=== PATIENT | female | born 1990 | race American Indian/Alaskan Native ===

== ENCOUNTER 2019-02-07 13:36 | Emergency (ER) | payer OTHER ==
[2019-02-07 14:37] VITALS: BP 134/89
--- NOTE | 2019-02-07 14:37 | Emergency Department Report ---
Minor Respiratory - HPI Chief Complaint: Sore Throat Stated Complaint: SORE THROAT Time Seen by Provider: 02/07/19 14:34 Duration: 2 Days Pain Location: Throat Severity: mild Minor Respiratory: Yes Rhinorrhea, Yes Sore Throat, Yes Able to Tolerate Fluids, Yes Ear Pain, Yes Cough, No Sick Contacts, No Hemoptysis, No Chest Pain, No Shortness of Breath, No Fever Other History: 28 YO AA FEMALE WITH SORETHROAT AND COUGH FOR 3 DAYS. NON TOXIC AND AFEBRILE ON EXAM. ED Review of Systems ROS: Stated complaint: SORE THROAT Other details as noted in HPI Comment: All other systems reviewed and negative Constitutional: denies: chills, fever Eyes: denies: eye pain ENT: as per HPI, throat pain. denies: ear pain Respiratory: denies: cough Cardiovascular: denies: orthopnea Endocrine: denies: flushing Gastrointestinal: denies: abdominal pain Genitourinary: denies: dysuria Musculoskeletal: denies: back pain Skin: denies: lesions Neurological: denies: headache Psychiatric: denies: depression Hematological/Lymphatic: denies: easy bleeding ED Past Medical Hx - Past Medical History Previous Medical History?: No - Surgical History Past Surgical History?: No - Family History Family history: no significant - Medications Home Medications: Home Medications Medication Instructions Recorded Confirmed Last Taken Type Amoxicillin 500 mg PO BID #20 capsule 02/07/19 Unknown Rx Minor Respiratory Exam - Exam General: Vital signs noted. No distress. Alert and acting appropriately. HEENT: Yes Pharyngeal Erythema, Yes Pharyngeal Exudates, Yes Moist Mucous Membranes, Yes Rhinorrhea, No Conjuctival Injection, No Frontal Tenderness, No Maxillary Tenderness Ear: Neither TM Bulge, Neither TM Erythema, Neither EAC Pain, Neither EAC Discharge Neck: Yes Supple, No Adenopathy Lungs: Yes Good Air Exchange, Yes Wheezes, Yes Cough, No Ronchi, No Stridor, No Labored Respirations, No Retractions, No Use of Accessory Muscles, No Other Abnormal Lung Sounds Heart: Yes Regular, No Murmur Abdomen: Yes Normal Bowel Sounds, No Tenderness, No Peritoneal Signs Skin: No Rash, No Edema Neurologic: Alert and oriented, no deficits. Musculoskeletal: Unremarkable. ED Medical Decision Making - Medical Decision Making SIMPLE URTI NON TOXIC AMBULATORY NO FEVER TAKING PO Critical care attestation.: If time is entered above; I have spent that time in minutes in the direct care of this critically ill patient, excluding procedure time. ED Disposition Clinical Impression: URTI (acute upper respiratory infection), Pharyngitis Disposition: - TO HOME OR SELFCARE Is pt being admited?: No Does the pt Need Aspirin: No Condition: Stable Instructions: Upper Respiratory Infection (ED) Additional Instructions: HYDRATE WELL WITH WATER MEDS ORDERED TODAY MOTRIN OR TYLENOL FOR PAIN OR FEVER FOLLOW UP WITH PCP IF PERSISTS REFERRAL BELOW DIET AND ACTIVITY TOLERATED Prescriptions: Amoxicillin 500 mg PO BID #20 capsule Referrals: CHARLIE HOOVER MD [Primary Care Provider] - 3-5 Days Time of Disposition: 15:04
== END 2019-02-07 15:20 | disposition home or self-care (01) ==
LOC: ED 13:36
DX: J02.9 Acute pharyngitis, unspecified (principal); J06.9 Acute upper respiratory infection, unspecified
CPT/HCPCS: 87116; 87430

== ENCOUNTER 2019-03-03 09:51 | Emergency (ER) | payer SELFPAY ==
[2019-03-03 09:56] VITALS: BP 135/82
[2019-03-03] MEDS ORDERED: IBUPROFEN PO ONE (11:57)
--- NOTE | 2019-03-03 12:03 | Emergency Department Report ---
- General Chief Complaint: Upper Respiratory Infection Stated Complaint: SORE THROAT/BODY ACHE/CONGESTION Time Seen by Provider: 03/03/19 11:56 Source: patient Mode of arrival: Ambulatory Limitations: No Limitations - History of Present Illness Initial Comments: 28-year-old -L[place] presents to the emergency room for cough, nasal congestion, sore throat and body aches since yesterday. Patient reports that she has a low-grade fever and runny nose. Patient reports that she had completed antibiotics 2 weeks ago for a throat infection. Patient is taken nothing for pain. MD Complaint: cough, sore throat, rhinorrhea, nasal congestion, sinus pain -: days(s) (1) Severity: moderate Severity scale (0 -10): 5 Consistency: intermittent Improves With: nothing Worsens With: nothing Associated Symptoms: headache, rhinorrhea, nasal congestion, sore throat, cough. denies: chest pain, shortness of breath, abdominal pain Treatments Prior to Arrival: none - Related Data Previous Rx's Medication Instructions Recorded Last Taken Type cephALEXin [Keflex] 500 mg PO Q12HR #20 cap 02/07/19 Unknown Rx Cetirizine HCl [Allergy Relief] 10 mg PO QDAY #30 capsule 03/03/19 Unknown Rx Fluticasone [Flonase] 1 spray NS QDAY #1 bottle 03/03/19 Unknown Rx Allergies Allergy/AdvReac Type Severity Reaction Status Date / Time Penicillins Allergy Severe Anaphylaxis Verified 03/03/19 09:53 ED Review of Systems ROS: Stated complaint: SORE THROAT/BODY ACHE/CONGESTION Other details as noted in HPI ENT: throat pain, congestion, other Respiratory: cough ED Past Medical Hx - Past Medical History Previous Medical History?: No - Surgical History Past Surgical History?: No - Social History Smoking Status: Never Smoker Substance Use Type: None - Medications Home Medications: Home Medications Medication Instructions Recorded Confirmed Last Taken Type cephALEXin [Keflex] 500 mg PO Q12HR #20 cap 02/07/19 Unknown Rx Cetirizine HCl [Allergy Relief] 10 mg PO QDAY #30 capsule 03/03/19 Unknown Rx Fluticasone [Flonase] 1 spray NS QDAY #1 bottle 03/03/19 Unknown Rx ED Physical Exam - General Limitations: No Limitations General appearance: alert, in no apparent distress - Head Head exam: Present: atraumatic, normocephalic - Eye Eye exam: Present: PERRL, EOMI - ENT ENT exam: Present: mucous membranes moist, TM's normal bilaterally, other (nasal discharge appreciated in both nostrils.) - Neck Neck exam: Present: normal inspection, full ROM. Absent: lymphadenopathy - Respiratory Respiratory exam: Present: normal lung sounds bilaterally. Absent: respiratory distress - Cardiovascular Cardiovascular Exam: Present: regular rate, normal rhythm. Absent: systolic murmur, diastolic murmur, rubs, gallop - GI/Abdominal GI/Abdominal exam: Present: soft, normal bowel sounds. Absent: distended, tenderness - Neurological Exam Neurological exam: Present: alert, oriented X3 - Psychiatric Psychiatric exam: Present: normal affect, normal mood - Skin Skin exam: Present: warm, dry, intact, normal color. Absent: rash ED Course Vital Signs 03/03/19 09:54 Temperature 99.1 F Pulse Rate 89 Respiratory 20 Rate Blood Pressure 135/82 O2 Sat by Pulse 100 Oximetry Critical care attestation.: If time is entered above; I have spent that time in minutes in the direct care of this critically ill patient, excluding procedure time. ED Disposition Clinical Impression: Allergic rhinitis Qualifiers: Allergic rhinitis trigger: pollen Allergic rhinitis seasonality: seasonal Qualified Code(s): J30.1 - Allergic rhinitis due to pollen Disposition: DC-01 TO HOME OR SELFCARE Is pt being admited?: No Does the pt Need Aspirin: No Condition: Stable Instructions: Allergic Rhinitis (ED) Additional Instructions: Please take medication as prescribed. Please follow-up with a primary care provider we have listed one below for your convenience Prescriptions: Cetirizine HCl [Allergy Relief] 10 mg PO QDAY #30 capsule Fluticasone [Flonase] 1 spray NS QDAY #1 bottle Referrals: SHERI HOLMAN MD [Primary Care Provider] - 3-5 Days
== END 2019-03-03 12:31 | disposition home or self-care (01) ==
LOC: ED 09:51
DX: J30.9 Allergic rhinitis, unspecified (principal); Z88.0 Allergy status to penicillin
CPT/HCPCS: 99282

== ENCOUNTER 2019-07-27 00:43 | Emergency (ER) | payer SELFPAY ==
[2019-07-27 00:52] VITALS: BP 142/91
--- NOTE | 2019-07-27 03:51 | Emergency Department Report ---
ED N/V/D HPI - General Chief complaint: Nausea/Vomiting/Diarrhea Stated complaint: LOOSE STOOL,BODYACHES,SORE THROAT Time Seen by Provider: 07/27/19 03:41 Source: patient Mode of arrival: Ambulatory Limitations: No Limitations - History of Present Illness Initial comments: 29yo F stated that she has had an upset stomach since she recently ate at a fast food restaurant. She stated that Pepto Bismol gives her no relief and diarrhea and pain have been constant. Pt further stated that she a decreased appetite, weakness, and chills. MD complaint: nausea, vomiting, diarrhea, abdominal pain -: days(s) (2) Description of Diarrhea: other Location: diffuse Radiation: none Severity: mild Pain Scale: 9 Quality: cramping Consistency: colicky Improves with: none Worsens with: none Context: possible food poisoning Associated Symptoms: fever/chills, loss of appetite, weakness - Related Data Previous Rx's Medication Instructions Recorded Last Taken Type cephALEXin [Keflex] 500 mg PO Q12HR #20 cap 02/07/19 Unknown Rx Cetirizine HCl [Allergy Relief] 10 mg PO QDAY #30 capsule 03/03/19 Unknown Rx Fluticasone [Flonase] 1 spray NS QDAY #1 bottle 03/03/19 Unknown Rx Allergies Allergy/AdvReac Type Severity Reaction Status Date / Time Penicillins Allergy Severe Anaphylaxis Verified 03/03/19 09:53 ED Review of Systems ROS: Stated complaint: LOOSE STOOL,BODYACHES,SORE THROAT Other details as noted in HPI Comment: All other systems reviewed and negative Constitutional: denies: chills, fever Eyes: denies: eye pain, eye discharge, vision change ENT: denies: ear pain, throat pain Respiratory: denies: cough, shortness of breath, wheezing Cardiovascular: denies: chest pain, palpitations Endocrine: no symptoms reported Gastrointestinal: abdominal pain, nausea, diarrhea Genitourinary: denies: urgency, dysuria, discharge Musculoskeletal: denies: back pain, joint swelling, arthralgia Skin: denies: rash, lesions Neurological: denies: headache, weakness, paresthesias Psychiatric: denies: anxiety, depression Hematological/Lymphatic: denies: easy bleeding, easy bruising ED Past Medical Hx - Past Medical History Previous Medical History?: No - Surgical History Past Surgical History?: No - Social History Smoking Status: Never Smoker Substance Use Type: None - Medications Home Medications: Home Medications Medication Instructions Recorded Confirmed Last Taken Type cephALEXin [Keflex] 500 mg PO Q12HR #20 cap 02/07/19 Unknown Rx Cetirizine HCl [Allergy Relief] 10 mg PO QDAY #30 capsule 03/03/19 Unknown Rx Fluticasone [Flonase] 1 spray NS QDAY #1 bottle 03/03/19 Unknown Rx ED Physical Exam - General Limitations: No Limitations General appearance: alert, in no apparent distress - Head Head exam: Present: atraumatic, normocephalic - Eye Eye exam: Present: normal appearance - ENT ENT exam: Present: normal exam - Neck Neck exam: Present: normal inspection, tenderness, full ROM - Respiratory Respiratory exam: Present: normal lung sounds bilaterally - Cardiovascular Cardiovascular Exam: Present: regular rate, normal rhythm, normal heart sounds - GI/Abdominal GI/Abdominal exam: Present: soft, hyperactive bowel sounds. Absent: distended, tenderness, guarding, rebound, rigid, mass - Rectal Rectal exam: Present: deferred - Extremities Exam Extremities exam: Present: normal inspection, full ROM - Back Exam Back exam: Present: normal inspection - Neurological Exam Neurological exam: Present: alert - Psychiatric Psychiatric exam: Present: normal affect - Skin Skin exam: Present: warm ED Course Vital Signs 07/27/19 00:50 Temperature 98.3 F Pulse Rate 68 Respiratory 18 Rate Blood Pressure 142/91 O2 Sat by Pulse 99 Oximetry ED Medical Decision Making - Medical Decision Making 29yo F stated that she has had an upset stomach since she recently ate at a fast food restaurant. She stated that Pepto-Bismol gives her no relief and diarrhea and pain have been constant. Pt further stated that she a decreased appetite, weakness, and chills. Labs were ordered; pt eloped before discharge. Critical care attestation.: If time is entered above; I have spent that time in minutes in the direct care of this critically ill patient, excluding procedure time. ED Disposition Clinical Impression: Gastroenteritis Disposition: DC-01 TO HOME OR SELFCARE Is pt being admited?: No Does the pt Need Aspirin: No Condition: Stable Instructions: Gastroenteritis (ED) Additional Instructions: Pt was counseled on eating a soft diet and increasing water intake. Pt eloped before discharge. Referrals: SHERI HOLMAN MD [Primary Care Provider] - 3-5 Days Forms: AMA Form Time of Disposition: 04:05
== END 2019-07-27 03:56 | disposition home or self-care (01) ==
LOC: ED 00:43
DX: R19.7 Diarrhea, unspecified (principal); Z53.21 Procedure and treatment not carried out due to patient leaving prior to being seen by health care provider

== ENCOUNTER 2020-10-26 08:37 | Emergency (ER) | payer SELFPAY ==
--- NOTE | 2020-10-26 10:05 | Emergency Department Report ---
- General Chief Complaint: Upper Respiratory Infection Stated Complaint: POSSIBLE COLD/SINUS INFECTION Time Seen by Provider: 10/26/20 09:48 Source: patient Mode of arrival: Ambulatory Limitations: No Limitations - History of Present Illness Initial Comments: Patient is a 30-year-old female who states that "her job sent her due to a temperature at work of 99.8." She states that beginning yesterday she started to have a dry cough, sore throat, discomfort in the ears. She denies any nausea, vomiting, diarrhea, shortness of breath, chest pain, abdominal pain. 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 No past medical history. Allergy to penicillin. She states her last menstrual cycle was 09/19/2020 but she denies any abdominal pain or vaginal bleeding. - Related Data Previous Rx's Medication Instructions Recorded Last Taken Type cephALEXin [Keflex] 500 mg PO Q12HR #20 cap 02/07/19 Unknown Rx Cetirizine HCl [Allergy Relief] 10 mg PO QDAY #30 capsule 03/03/19 Unknown Rx Fluticasone [Flonase] 1 spray NS QDAY #1 bottle 03/03/19 Unknown Rx Allergies Allergy/AdvReac Type Severity Reaction Status Date / Time Penicillins Allergy Severe Anaphylaxis Verified 03/03/19 09:53 ED Review of Systems ROS: Stated complaint: POSSIBLE COLD/SINUS INFECTION Other details as noted in HPI Comment: All other systems reviewed and negative ED Past Medical Hx - Past Medical History Previous Medical History?: No - Surgical History Past Surgical History?: No - Social History Smoking Status: Never Smoker - Medications Home Medications: Home Medications Medication Instructions Recorded Confirmed Last Taken Type cephALEXin [Keflex] 500 mg PO Q12HR #20 cap 02/07/19 Unknown Rx Cetirizine HCl [Allergy Relief] 10 mg PO QDAY #30 capsule 03/03/19 Unknown Rx Fluticasone [Flonase] 1 spray NS QDAY #1 bottle 03/03/19 Unknown Rx ED Physical Exam - General Limitations: No Limitations General appearance: alert, in no apparent distress - Head Head exam: Present: atraumatic, normocephalic - Eye Eye exam: Present: normal appearance - ENT ENT exam: Present: normal orophraynx, mucous membranes moist, TM's normal bilaterally, normal external ear exam - Neck Neck exam: Present: full ROM. Absent: meningismus - Respiratory Respiratory exam: Present: normal lung sounds bilaterally. Absent: respiratory distress, wheezes, rales, rhonchi, stridor, chest wall tenderness, accessory muscle use, decreased breath sounds, prolonged expiratory - Cardiovascular Cardiovascular Exam: Present: regular rate, normal rhythm, normal heart sounds. Absent: systolic murmur, diastolic murmur, rubs, gallop - Neurological Exam Neurological exam: Present: alert, oriented X3 - Psychiatric Psychiatric exam: Present: normal affect, normal mood - Skin Skin exam: Present: warm, dry, intact ED Course Vital Signs 10/26/20 10/26/20 08:45 10:41 Temperature 98.4 F 98.3 F Pulse Rate 107 H 75 Respiratory 20 14 Rate Blood Pressure 146/100 136/86 [Right] O2 Sat by Pulse 100 99 Oximetry ED Medical Decision Making - Lab Data Vital Signs 10/26/20 10/26/20 08:45 10:41 Temperature 98.4 F 98.3 F Pulse Rate 107 H 75 Respiratory 20 14 Rate Blood Pressure 146/100 136/86 [Right] O2 Sat by Pulse 100 99 Oximetry - Medical Decision Making Patient is a 30-year-old female who states that "her job sent her due to a temperature at work of 99.8." She states that beginning yesterday she started to have a dry cough, sore throat, discomfort in the ears. She denies any nausea, vomiting, diarrhea, shortness of breath, chest pain, abdominal pain. 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 No past medical history. Allergy to penicillin. She states her last menstrual cycle was 09/19/2020 but she denies any abdominal pain or vaginal bleeding. initial triage vitals with mild tachycardia and mild elevation in blood pressure which improved upon repeat without intervention. On exam breath sounds are clear bilaterally, no wheezing, no rales, no rhonchi, no respiratory distress, normal oropharynx, normal TMs and canals bilaterally, normal nasal turbinates, no signs of sinusitis. Patient is presenting with viral URI symptoms. Patient is presenting with the symptoms during COVID-19 pandemic, discussed COVID-19 with patient, discuss strict return precautions, discussed outpatient testing, discussed self quarantine. Patient does not have any clinical signs of bacte rial pneumonia or bacterial bronchitis. She has no clinical signs of dehydration. She does not meet hospital criteria for admission or for hospital testing. Advised patient Please increase your fluid intake over the next several days. May take Tylenol as needed for fever or body aches. May take [id number] cold symptom relief medication such as Mucinex or TheraFlu. Follow-up with a primary care doctor for reexamination. Return to emergency room immediately for any new or worsening symptoms including but not limited to difficulty breathing, shortness of breath, severe chest pain, unable to tolerate by mouth intake, etc. Please self quarantine for 10 days from the onset of your symptoms. Please do not go out in public. If you are around others at home please wear a mask. If you need to cough or sneeze please do so in a napkin and immediately throw it away and immediately wash your hands. Wash your hands frequently. Wipe everything down. Recommend for you to get COVID-19 testing, may have this done at primary care doctor, health department, [employer] thru testing centers. - Differential Diagnosis Pharyngitis, tonsillitis, sinusitis, viral syndrome, URI, PNA, COVID-19 Critical care attestation.: If time is entered above; I have spent that time in minutes in the direct care of this critically ill patient, excluding procedure time. ED Disposition Clinical Impression: Viral URI with cough Disposition: Z- MED SCREENING EXAM-LEFT Is pt being admited?: No Does the pt Need Aspirin: No Condition: Stable Instructions: Viral Illness, Adult Additional Instructions: Please increase your fluid intake over the next several days. May take Tylenol as needed for fever or body aches. May take [id number] cold symptom relief medication such as Mucinex or TheraFlu. Follow-up with a primary care doctor for reexamination. Return to emergency room immediately for any new or worsening symptoms including but not limited to difficulty breathing, shortness of breath, severe chest pain, unable to tolerate by mouth intake, etc. Please self quarantine for 10 days from the onset of your symptoms. Please do not go out in public. If you are around others at home please wear a mask. If you need to cough or sneeze please do so in a napkin and immediately throw it away and immediately wash your hands. Wash your hands frequently. Wipe everything down. Recommend for you to get COVID-19 testing, may have this done at primary care doctor, health department, [facility] thru testing centers. Referrals: PRIMARY MD GALEN [Primary Care Provider] - 2-3 Days [facility] [Provider Group] - 2-3 Days CHARLIE HOOVER MD [Staff Physician] - 2-3 Days Forms: Work/School Release Form(ED) Time of Disposition: 10:10 Print Language: SRI LANKAN
[2020-10-26 10:42] VITALS: BP 136/86
== END 2020-10-26 10:44 | disposition left against medical advice (07) ==
LOC: ED 08:37
DX: J06.9 Acute upper respiratory infection, unspecified (principal); B97.89 Other viral agents as the cause of diseases classified elsewhere; Z53.21 Procedure and treatment not carried out due to patient leaving prior to being seen by health care provider
CPT/HCPCS: 99282

== ENCOUNTER 2020-11-21 18:51 | Emergency (ER) | payer SELFPAY ==
[2020-11-21 20:04] VITALS: BP 150/95
--- NOTE | 2020-11-21 21:36 | Emergency Department Report ---
Chief Complaint: Nausea/Vomiting/Diarrhea Stated Complaint: NAUSEA Time Seen by Provider: 11/21/20 21:33 - HPI History of Present Illness: Patient is a 30-year-old female presents emergency room for nausea that occurred today while at work. She states that it occurred after eating food from . A restaurant. She denies any vomiting, diarrhea, fever, abdominal pain, chest pain, shortness of breath, cough. She denies any known sick contacts. She denies any recent travel. She states that her job wanted her to be "checked for COVID-19" but she has no other COVID-19 symptoms. No past medical history. Allergy to penicillin. Vitals are stable on exam: Non toxic appearing, no acute distress atraumatic, normocephalic normal appearance of the eyes, PERRL, EOMI, no periorbital edema or ecchymosis moist mucus membranes regular heart rate and rhythm, no gallops, no rubs, no murmurs breath sounds are clear bilaterally, no w/r/r A&O x4, no focal neuro deficit skin is warm, dry, intact Patient is presenting for nausea after eating from a restaurant she has no other symptoms Vitals are stable She denies any sick contacts or recent travel Advised patient please follow your work guideline regarding COVID 19. return to the emergency room for any new or worsening symptoms. Discussed strict return precautions Medical screening examination performed and there is no threat to life or limb at this time - Exam Vital Signs: Vital Signs 11/21/20 20:03 Temperature 97.9 F Pulse Rate 86 Respiratory 20 Rate Blood Pressure 150/95 O2 Sat by Pulse 96 Oximetry MSE screening note: Focused history and physical exam performed. ED Disposition for MSE Clinical Impression: Encounter for medical screening examination Disposition: Z-07 MED SCREENING EXAM-LEFT Is pt being admited?: No Does the pt Need Aspirin: No Condition: Stable Additional Instructions: please follow your work guideline regarding COVID 19. return to the emergency room for any new or worsening symptoms. Referrals: CHARLIE HOOVER MD [Staff Physician] - 2-3 Days [facility] [Provider Group] - 2-3 Days [facility], [LAB/CONTRACT] - 2-3 Days Forms: Work/School Release Form(ED) Time of Disposition: 21:34 Print Language: ROMANSH
== END 2020-11-21 22:00 | disposition left against medical advice (07) ==
LOC: ED 18:51
DX: R11.0 Nausea (principal); Z13.9 Encounter for screening, unspecified; Z53.21 Procedure and treatment not carried out due to patient leaving prior to being seen by health care provider

== ENCOUNTER 2021-05-16 15:35 | Emergency (ER) | payer SELFPAY ==
--- NOTE | 2021-05-16 17:56 | Emergency Department Report ---
ED ENT HPI - General Chief complaint: Earache Stated complaint: EAR ACHE, SINUS PRESSURE, NAUSEA Time Seen by Provider: 05/16/21 17:26 Source: patient Mode of arrival: Ambulatory Limitations: No Limitations - History of Present Illness MD complaint: sore throat -: Gradual Location: R ear Severity: mild Quality: dull Consistency: constant Improves with: none Worsens with: none Associated Symptoms: cough - Related Data Previous Rx's Medication Instructions Recorded Last Taken Type cephALEXin [Keflex] 500 mg PO Q12HR #20 cap 02/07/19 Unknown Rx Cetirizine HCl [Allergy Relief] 10 mg PO QDAY #30 capsule 03/03/19 Unknown Rx Benzonatate [Tessalon Perles] 100 mg PO Q8HR #20 capsule 05/16/21 Unknown Rx Fluticasone [Flonase] 1 spray NS QDAY #1 bottle 05/16/21 Unknown Rx Neomy/Polymyx B/Hc Otic Susp 4 drops AD TID #1 bottle 05/16/21 Unknown Rx [Cortisporin (Otic) Susp] Allergies Allergy/AdvReac Type Severity Reaction Status Date / Time Penicillins Allergy Severe Anaphylaxis Verified 03/03/19 09:53 shellfish derived Allergy Shortness Verified 11/21/20 19:59 of Breath ED Dental HPI - General Chief complaint: Earache Stated complaint: EAR ACHE, SINUS PRESSURE, NAUSEA Time Seen by Provider: 05/16/21 17:26 Source: patient Mode of arrival: Ambulatory Limitations: No Limitations - Related Data Previous Rx's Medication Instructions Recorded Last Taken Type cephALEXin [Keflex] 500 mg PO Q12HR #20 cap 02/07/19 Unknown Rx Cetirizine HCl [Allergy Relief] 10 mg PO QDAY #30 capsule 03/03/19 Unknown Rx Benzonatate [Tessalon Perles] 100 mg PO Q8HR #20 capsule 05/16/21 Unknown Rx Fluticasone [Flonase] 1 spray NS QDAY #1 bottle 05/16/21 Unknown Rx Neomy/Polymyx B/Hc Otic Susp 4 drops AD TID #1 bottle 05/16/21 Unknown Rx [Cortisporin (Otic) Susp] Allergies Allergy/AdvReac Type Severity Reaction Status Date / Time Penicillins Allergy Severe Anaphylaxis Verified 03/03/19 09:53 shellfish derived Allergy Shortness Verified 11/21/20 19:59 of Breath ED Review of Systems ROS: Stated complaint: EAR ACHE, SINUS PRESSURE, NAUSEA Other details as noted in HPI ED Past Medical Hx - Past Medical History Previous Medical History?: No - Surgical History Past Surgical History?: No - Social History Smoking Status: Never Smoker Substance Use Type: None - Medications Home Medications: Home Medications Medication Instructions Recorded Confirmed Last Taken Type cephALEXin [Keflex] 500 mg PO Q12HR #20 cap 02/07/19 Unknown Rx Cetirizine HCl [Allergy Relief] 10 mg PO QDAY #30 capsule 03/03/19 Unknown Rx Benzonatate [Tessalon Perles] 100 mg PO Q8HR #20 capsule 05/16/21 Unknown Rx Fluticasone [Flonase] 1 spray NS QDAY #1 bottle 05/16/21 Unknown Rx Neomy/Polymyx B/Hc Otic Susp 4 drops AD TID #1 bottle 05/16/21 Unknown Rx [Cortisporin (Otic) Susp] ED Physical Exam - General Limitations: No Limitations General appearance: alert, in no apparent distress - Head Head exam: Present: atraumatic, normocephalic - Eye Eye exam: Present: normal appearance - ENT ENT exam: Present: normal exam, normal orophraynx, mucous membranes moist, TM's normal bilaterally, other (Right tragal tenderness is noted. With some swelling to the right ear canal. Skin scant exudate. No mastoid tenderness is noted. Airway is patent tongue and uvula are midline. Nasal congestion bilaterally right greater than the left with some increased erythema edema and some discharge no) - Neck Neck exam: Present: normal inspection, full ROM. Absent: tenderness, lymphadenopathy, thyromegaly - Respiratory Respiratory exam: Present: normal lung sounds bilaterally. Absent: respiratory distress, wheezes, rales, rhonchi, chest wall tenderness, accessory muscle use, decreased breath sounds - Cardiovascular Cardiovascular Exam: Present: regular rate, normal rhythm. Absent: systolic murmur, diastolic murmur, rubs, gallop - GI/Abdominal GI/Abdominal exam: Present: soft, normal bowel sounds - Extremities Exam Extremities exam: Present: normal inspection, full ROM, normal capillary refill - Back Exam Back exam: Present: normal inspection. Absent: CVA tenderness (R), CVA tenderness (L) - Neurological Exam Neurological exam: Present: alert, oriented X3, CN II-XII intact, normal gait. Absent: abnormal gait, motor sensory deficit - Psychiatric Psychiatric exam: Present: normal affect, normal mood. Absent: anxious, flat affect, homicidal ideation - Skin Skin exam: Present: warm, dry, intact, normal color. Absent: rash, cyanosis, diaphoretic, erythema, petechiae, pallor, abrasion ED Course Vital Signs 05/16/21 17:14 Temperature 98.3 F Pulse Rate 59 L Respiratory 18 Rate Blood Pressure 140/97 O2 Sat by Pulse 100 Oximetry Critical care attestation.: If time is entered above; I have spent that time in minutes in the direct care of this critically ill patient, excluding procedure time. ED Disposition Clinical Impression: Otitis externa, Nasal sinus congestion Disposition: TO HOME OR SELFCARE Is pt being admited?: No Does the pt Need Aspirin: No Condition: Stable Instructions: Otitis Externa, Sinus Headache, Ear Drops, Adult, [id number] Prescriptions: Neomy/Polymyx B/Hc Otic Susp [Cortisporin (Otic) Susp] 4 drops AD TID #1 bottle Fluticasone [Flonase] 1 spray NS QDAY #1 bottle Benzonatate [Tessalon Perles] 100 mg PO Q8HR #20 capsule Referrals: [facility] [Provider Group] - 3-5 Days
== END 2021-05-16 18:28 | disposition home or self-care (01) ==
LOC: ED 15:35
CPT/HCPCS: 99282

== ENCOUNTER 2021-05-25 15:58 | Emergency (ER) | payer SELFPAY ==
--- NOTE | 2021-05-25 16:30 | Emergency Department Report ---
Minor Respiratory - HPI Chief Complaint: Headache Stated Complaint: SINUS Time Seen by Provider: 05/25/21 16:23 Duration: 2 Days Pain Location: Facial, Nose, Ear Severity: mild Minor Respiratory: Yes Sore Throat, Yes Able to Tolerate Fluids, Yes Ear Pain, No Rhinorrhea, No Cough, No Sick Contacts, No Hemoptysis, No Chest Pain, No Shortness of Breath, No Fever Other History: 31 yo comes to er with sinus pressure, ear pain and sore throat. 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 no fever or chills. ambulatory and non ill appearing on exam. has not gotten covid19 immunization ED Review of Systems ROS: Stated complaint: SINUS Other details as noted in HPI Comment: All other systems reviewed and negative ED Past Medical Hx - Past Medical History Previous Medical History?: No - Surgical History Past Surgical History?: Yes Additional Surgical History: Dental - Family History Family history: no significant - Social History Smoking Status: Never Smoker Substance Use Type: None - Medications Home Medications: Home Medications Medication Instructions Recorded Confirmed Last Taken Type Cetirizine HCl [ZyrTEC] 10 mg PO DAILY #30 capsule 05/25/21 Unknown Rx Fluticasone [Flonase] 1 spray NS QDAY #1 bottle 05/25/21 Unknown Rx cephALEXin [Keflex] 500 mg PO Q12HR #20 cap 05/25/21 Unknown Rx predniSONE [Deltasone] 20 mg PO DAILY #5 tablet 05/25/21 Unknown Rx Minor Respiratory Exam - Exam General: Vital signs noted. No distress. Alert and acting appropriately. HEENT: Yes Pharyngeal Erythema, Yes Moist Mucous Membranes, Yes Frontal Tenderness, Yes Maxillary Tenderness, No Pharyngeal Exudates, No Rhinorrhea, No Conjuctival Injection Ear: Both TM Erythema, Neither TM Bulge, Neither EAC Pain, Neither EAC Discharge Neck: Yes Supple, No Adenopathy Lungs: Yes Good Air Exchange, No Wheezes, No Ronchi, No Stridor, No Cough, No Labored Respirations, No Retractions, No Use of Accessory Muscles, No Other Abnormal Lung Sounds Heart: Yes Regular, No Murmur Abdomen: Yes Normal Bowel Sounds, No Tenderness, No Peritoneal Signs Skin: No Rash, No Edema Neurologic: Alert and oriented, no deficits. Musculoskeletal: Unremarkable. ED Course Vital Signs 05/25/21 16:24 Temperature 98.6 F Pulse Rate 69 Respiratory 16 Rate Blood Pressure 125/87 O2 Sat by Pulse 100 Oximetry ED Medical Decision Making - Medical Decision Making Vital Signs (72 hours) 05/25/21 16:24 Temperature 98.6 F Pulse Rate 69 Respiratory 16 Rate Blood Pressure 125/87 O2 Sat by Pulse 100 Oximetry simple uri vs normal non ill non toxic ambulatory and taking po with no difficulty dc home with dc plan of care including follow up with pcp. Pt verbalizes understanding of plan of care. - Differential Diagnosis uri Critical care attestation.: If time is entered above; I have spent that time in minutes in the direct care of this critically ill patient, excluding procedure time. ED Disposition Clinical Impression: Sinusitis Disposition: DC-01 TO HOME OR SELFCARE Is pt being admited?: No Does the pt Need Aspirin: No Condition: Stable Instructions: Sinusitis, Adult, [id number] Additional Instructions: meds as ordered stay well hydrated with water motrin or tylenol for pain follow up with pcp in 1 week to be sure you are getting well wash hands get your covid19 immunization referral to pcp below Prescriptions: predniSONE [Deltasone] 20 mg PO DAILY #5 tablet Fluticasone [Flonase] 1 spray NS QDAY #1 bottle cephALEXin [Keflex] 500 mg PO Q12HR #20 cap Cetirizine HCl [ZyrTEC] 10 mg PO DAILY #30 capsule Referrals: CHARLIE HOOVER MD [Staff Physician] - 3-5 Days Forms: Work/School Release Form(ED) Time of Disposition: 16:29
== END 2021-05-25 16:45 | disposition home or self-care (01) ==
LOC: ED 15:58
CPT/HCPCS: 99281

== ENCOUNTER 2021-06-22 19:21 | Emergency (ER) | payer SELFPAY ==
[2021-06-22 20:00] VITALS: BP 137/90
[2021-06-22] MEDS ORDERED: ACETAMINOPHEN 500 MG TAB PO ONE (20:04)
--- NOTE | 2021-06-22 20:45 | Event Note ---
ED Screening Note Date of service: 06/22/21 Time: 20:44 ED Screening Note: 31-year-old female patient with history of recurrent ear infections presents to the emergency department with complaints of fever, productive cough, myalgias, and bilateral ear pain starting 6 days ago. Patient has been taking Tylenol at home with limited relief. Patient was last on antibiotics approximately 1 month ago. She was sent to the emergency department for evaluation by her employer because she was informed of an exposure to "viral pneumonia." Patient has not received her COVID-19 vaccination series. Febrile in triage. Tylenol ordered. General: Awake, appropriately interactive, no acute distress. ENT: Debris noted to the external auditory canals with painful external ear manipulation bilaterally. Neck: Supple. Full range of motion intact. Cardiovascular: Normal peripheral perfusion. Pulmonary: No respiratory distress. Patient is speaking normally without use of accessory muscles. Skin: No apparent rashes or lesions. Neurological: No facial asymmetry. Speech is clear. Follows commands. Patient is alert and oriented. Musculoskeletal: Moves all four extremities spontaneously with normal range of motion. Psych: Cooperative. Appropriate mood and affect. I have greeted and performed a focused rapid initial assessment of this patient. A comprehensive ED assessment and evaluation of the patient, analysis of all test results, and completion of the medical decision-making process will be conducted by additional ED providers. This initial assessment/diagnostic orders/clinical plan/treatment(s) is/are subject to change based on patients health status, clinical progression and re-assessment. Further treatment and workup at subsequent clinical provider's discretion. Patient/guardian urged not to elope from the ED as their condition may be serious if not clinically assessed and managed.
--- NOTE | 2021-06-22 21:02 | XRay Report ---
CHEST 2 VIEWS INDICATION / CLINICAL INFORMATION: fever/cough, (+) exposure to pneumonia. COMPARISON: None available. FINDINGS: SUPPORT DEVICES: None. HEART / MEDIASTINUM: No significant abnormality. LUNGS / PLEURA: No significant pulmonary or pleural abnormality. No pneumothorax. ADDITIONAL FINDINGS: No significant additional findings. IMPRESSION: 1. No acute findings. Signer Name: Ramo Willingham DO Signed: 06/22/2021 8:58 PM Workstation Name: [id number]
--- NOTE | 2021-06-23 05:12 | Emergency Department Report ---
- General Chief Complaint: Upper Respiratory Infection Stated Complaint: HEADACHE/EARACHE/MUCUS W/COUGH/NASAL CONGESTION Source: patient Mode of arrival: Ambulatory Limitations: No Limitations - History of Present Illness Initial Comments: Patient is a 31-year-old -[place] female with no past medical history presents to the ED with complaint of acute onset persistent nasal and sinus congestion, frontal sinus pressure and headache, persistent dry cough and intermittent fever up to 101 F with chills and lack of appetite as well as diffuse body aches and pains for the last 1 week. Patient states that one of her colleagues at work had similar symptoms and had been diagnosed with viral pneumonia. Patient states that she has not received her COVID-19 vaccination yet. Patient denies dizziness, syncope, chest pain, shortness of breath, nausea, vomiting, diarrhea, dysuria, urinary frequency and urgency or abdominal pain. MD Complaint: fever, cough, rhinorrhea, nasal congestion, sinus pain -: Sudden, week(s) (1) Severity: severe Severity scale (0 -10): 7 Quality: sharp, aching Consistency: constant Improves With: nothing Worsens With: nothing Context: sick contacts Associated Symptoms: fever, chills, myalgias, headache, rhinorrhea, nasal congestion, cough. denies: diaphoresis, sore throat, stiff neck, chest pain, shortness of breath, abdominal pain, nausea, vomiting, diarrhea, dysuria, rash, confusion, right sweats, epistaxis, hoarseness, ear pain, other Treatments Prior to Arrival: "cold medicine" - Related Data Previous Rx's Medication Instructions Recorded Last Taken Type Cetirizine HCl [ZyrTEC] 10 mg PO DAILY #30 capsule 05/25/21 Unknown Rx Fluticasone [Flonase] 1 spray NS QDAY #1 bottle 05/25/21 Unknown Rx Ondansetron [Zofran Odt] 4 mg PO Q8HR PRN #10 tab.rapdis 05/25/21 Unknown Rx cephALEXin [Keflex] 500 mg PO Q12HR #20 cap 05/25/21 Unknown Rx predniSONE [Deltasone] 20 mg PO DAILY #5 tablet 05/25/21 Unknown Rx Azithromycin [Zithromax Z-ANNETTE] 250 mg PO DAILY #6 tablet 06/23/21 Unknown Rx Benzonatate [Tessalon Perles] 100 mg PO Q8HR #30 capsule 06/23/21 Unknown Rx Cetirizine HCl [Zyrtec 10mg tab] 10 mg PO DAILY #30 tablet 06/23/21 Unknown Rx Ibuprofen [Motrin] 600 mg PO Q8H PRN #30 tablet 06/23/21 Unknown Rx Prednisone [predniSONE 10 mg 10 mg PO .TAPER #21 tab.ds.pk 06/23/21 Unknown Rx (6-Day Pack, 21 Tabs)] Allergies Allergy/AdvReac Type Severity Reaction Status Date / Time Penicillins Allergy Severe Anaphylaxis Verified 03/03/19 09:53 amoxicillin Allergy Rash Verified 06/22/21 19:58 shellfish derived Allergy Shortness Verified 11/21/20 19:59 of Breath ED Review of Systems ROS: Stated complaint: HEADACHE/EARACHE/MUCUS W/COUGH/NASAL CONGESTION Other details as noted in HPI Constitutional: chills, fever, malaise, weakness Eyes: denies: eye pain, eye discharge, vision change ENT: congestion, other (Frontal sinus pressure and headache). denies: ear pain, throat pain Respiratory: cough. denies: shortness of breath, wheezing Cardiovascular: denies: chest pain, palpitations Endocrine: no symptoms reported Gastrointestinal: denies: abdominal pain, nausea, vomiting, diarrhea Genitourinary: denies: urgency, dysuria, discharge Musculoskeletal: arthralgia, myalgia. denies: back pain, joint swelling Skin: denies: rash, lesions Neurological: headache (Frontal headache). denies: weakness, paresthesias Psychiatric: denies: anxiety, depression Hematological/Lymphatic: denies: easy bleeding, easy bruising ED Past Medical Hx - Past Medical History Previous Medical History?: No - Surgical History Past Surgical History?: Yes Additional Surgical History: Dental - Social History Smoking Status: Never Smoker Substance Use Type: None - Medications Home Medications: Home Medications Medication Instructions Recorded Confirmed Last Taken Type Cetirizine HCl [ZyrTEC] 10 mg PO DAILY #30 capsule 05/25/21 Unknown Rx Fluticasone [Flonase] 1 spray NS QDAY #1 bottle 05/25/21 Unknown Rx Ondansetron [Zofran Odt] 4 mg PO Q8HR PRN #10 tab.rapdis 05/25/21 Unknown Rx cephALEXin [Keflex] 500 mg PO Q12HR #20 cap 05/25/21 Unknown Rx predniSONE [Deltasone] 20 mg PO DAILY #5 tablet 05/25/21 Unknown Rx Azithromycin [Zithromax Z-ANNETTE] 250 mg PO DAILY #6 tablet 06/23/21 Unknown Rx Benzonatate [Tessalon Perles] 100 mg PO Q8HR #30 capsule 06/23/21 Unknown Rx Cetirizine HCl [Zyrtec 10mg tab] 10 mg PO DAILY #30 tablet 06/23/21 Unknown Rx Ibuprofen [Motrin] 600 mg PO Q8H PRN #30 tablet 06/23/21 Unknown Rx Prednisone [predniSONE 10 mg 10 mg PO .TAPER #21 tab.ds.pk 06/23/21 Unknown Rx (6-Day Pack, 21 Tabs)] ED Physical Exam - General Limitations: No Limitations General appearance: alert, in no apparent distress - Head Head exam: Present: atraumatic, normocephalic, normal inspection - Eye Eye exam: Present: normal appearance, PERRL, EOMI Pupils: Present: normal accommodation - ENT ENT exam: Present: normal orophraynx, mucous membranes moist, TM's normal bilaterally, normal external ear exam, other (Grossly congested nasal passages; palpable frontal sinus tenderness) - Neck Neck exam: Present: normal inspection, full ROM. Absent: tenderness - Respiratory Respiratory exam: Present: normal lung sounds bilaterally. Absent: respiratory distress, rales, rhonchi, stridor, accessory muscle use, decreased breath sounds, prolonged expiratory - Cardiovascular Cardiovascular Exam: Present: regular rate, normal rhythm, normal heart sounds. Absent: systolic murmur, diastolic murmur, rubs, gallop - GI/Abdominal GI/Abdominal exam: Present: soft, normal bowel sounds. Absent: tenderness, rebound, hyperactive bowel sounds, organomegaly, mass - Extremities Exam Extremities exam: Present: normal inspection, full ROM, normal capillary refill - Back Exam Back exam: Present: normal inspection, full ROM. Absent: tenderness, CVA tenderness (R), CVA tenderness (L), muscle spasm, paraspinal tenderness - Neurological Exam Neurological exam: Present: alert, oriented X3, CN II-XII intact, normal gait, reflexes normal - Psychiatric Psychiatric exam: Present: normal affect, normal mood - Skin Skin exam: Present: warm, dry, intact, normal color. Absent: rash ED Course Vital Signs 06/22/21 06/22/21 19:59 20:08 Temperature 101.1 F H Pulse Rate 91 H Respiratory 20 20 Rate Blood Pressure 137/90 [Right] O2 Sat by Pulse 100 Oximetry ED Medical Decision Making - Radiology Data Radiology results: report reviewed, image reviewed [facility] [address] [place] [address] XRay Report Signed Patient: WILL JONAS MR#: [id number] : 1990 Acct:[id number] Age/Sex: 31 / F ADM Date: 06/22/21 Loc: ED Attending Dr: Ordering Physician: SOFÍA SCHMIDT Date of Service: 06/22/21 Procedure(s): XR chest routine 2V Accession Number(s): [id number] cc: SOFÍA SCHMIDT Fluoro Time In Minutes: CHEST 2 VIEWS INDICATION / CLINICAL INFORMATION: fever/cough, (+) exposure to pneumonia. COMPARISON: None available. FINDINGS: SUPPORT DEVICES: None. HEART / MEDIASTINUM: No significant abnormality. LUNGS / PLEURA: No significant pulmonary or pleural abnormality. No pneumothorax. ADDITIONAL FINDINGS: No significant additional findings. IMPRESSION: 1. No acute findings. Signer Name: Ramo Willingham DO Signed: 06/22/2021 8:58 PM Workstation Name: [id number] Transcribed By: APURVA Dictated By: RAMO WILLINGHAM DO Electronically Authenticated By: RAMO WILLINGHAM DO Signed Date/Time: 06/22/212057 DD/ 56 TD/TT: - Medical Decision Making This is a 31-year-old -[place] female with no past medical history presents to the ED with complaint of acute onset persistent nasal and sinus congestion, frontal sinus pressure and headache, persistent dry cough and intermittent fever up to 101 F with chills and lack of appetite as well as diffuse body aches and pains for the last 1 week. Patient states that one of her colleagues at work had similar symptoms and had been diagnosed with viral pneumonia. Patient states that she has not received her COVID-19 vaccination yet. In the ED, patient is alert and oriented x3 and is not in any distress. Patient is however febrile in triage. Patient was treated in the ED for fever. Chest x-ray shows no acute cardiopulmonary abnormalities or pneumonitis. Patient symptoms are likely due to acute upper respiratory infection, versus bronchitis versus sinusitis. On reevaluation, patient's fever resolved with medications. Patient was therefore discharged home on medications and advised to follow-up with her primary care physician in 5 to 7 days for reevaluation. Patient was also encouraged to obtain a Covid 19 vaccination as soon as her symptoms resolved. Patient was advised return to the ED immediately if symptoms get worse. - Differential Diagnosis Sinusitis; URI; bronchitis; pneumonia Critical care attestation.: If time is entered above; I have spent that time in minutes in the direct care of this critically ill patient, excluding procedure time. ED Disposition Clinical Impression: Acute upper respiratory infection, Acute bacterial bronchitis, Fever and chills Acute frontal sinusitis, unspecified Qualifiers: Recurrence: non-recurrent Qualified Code(s): J01.10 - Acute frontal sinusitis, unspecified Disposition: - TO HOME OR SELFCARE Is pt being admited?: No Does the pt Need Aspirin: No Condition: Stable Instructions: Acute Bronchitis (ED), Sinusitis, Adult, [id number], Upper Respiratory Infection, Adult, [id number], Cough, Adult, [id number], Acute Bronchitis, Adult, [id number], Fever, Adult, [id number] Additional Instructions: Chest x-ray shows no acute cardiopulmonary abnormalities or pneumonitis. Your symptoms are likely due to acute upper respiratory infection, versus bronchitis versus sinusitis. Therefore take medication with food, drink plenty of fluids and follow-up with your primary care physician in 5 to 7 days for reevaluation. Return to the ED immediately if symptoms get worse. Prescriptions: Ibuprofen [Motrin] 600 mg PO Q8H PRN #30 tablet PRN Reason: Pain Prednisone [predniSONE 10 mg (6-Day Pack, 21 Tabs)] 10 mg PO .TAPER #21 tab.ds.pk Benzonatate [Tessalon Perles] 100 mg PO Q8HR #30 capsule Azithromycin [Zithromax Z-ANNETTE] 250 mg PO DAILY #6 tablet Cetirizine HCl [Zyrtec 10mg tab] 10 mg PO DAILY #30 tablet Referrals: [facility] [Provider Group] - 3-5 Days Forms: Work/School Release Form(ED) Time of Disposition: 05:14 Print Language: KOREAN
== END 2021-06-23 05:30 | disposition home or self-care (01) ==
LOC: ED 19:21
DX: J01.10 Acute frontal sinusitis, unspecified (principal); J06.9 Acute upper respiratory infection, unspecified; J20.8 Acute bronchitis due to other specified organisms; B96.89 Other specified bacterial agents as the cause of diseases classified elsewhere; R50.9 Fever, unspecified; Z79.899 Other long term (current) drug therapy; Z88.0 Allergy status to penicillin; Z91.013 Allergy to seafood; Z98.890 Other specified postprocedural states
CPT/HCPCS: 71046

== ENCOUNTER 2021-11-28 11:30 | Emergency (ER) | payer SELFPAY ==
[2021-11-28 11:38] VITALS: BP 147/93
--- NOTE | 2021-11-28 13:46 | Emergency Department Report ---
ED General Adult HPI - General Chief complaint: Fever Stated complaint: HEADACHE/COLD/RUNNY NOSE Time Seen by Provider: 11/28/21 13:07 Source: patient Mode of arrival: Ambulatory Limitations: No Limitations - History of Present Illness Initial comments: 31-year-old -[place] female patient presents with complaints of bilateral ear pain, sore throat, and cough x4 days. She states that she had a negative COVID-19 test 2 days ago. She has received 1 dose of her COVID-19 vaccination. She denies any loss of taste or smell, hemoptysis, shortness of breath, or chest pain. Patient states she was referred to the ED today because she had a fever of 101.8 at her job. She reports a history of recurrent otitis externa, but denies any submerging of the ears underwater. No loss of hearing per patient. Rates her current pain is 7/10 in severity. Patient states allergic to penicillin Severity scale (0 -10): 7 - Related Data Previous Rx's Medication Instructions Recorded Last Taken Type Cetirizine HCl [ZyrTEC] 10 mg PO DAILY #30 capsule 05/25/21 Unknown Rx Fluticasone [Flonase] 1 spray NS QDAY #1 bottle 05/25/21 Unknown Rx Ondansetron [Zofran Odt] 4 mg PO Q8HR PRN #10 tab.rapdis 05/25/21 Unknown Rx cephALEXin [Keflex] 500 mg PO Q12HR #20 cap 05/25/21 Unknown Rx predniSONE [Deltasone] 20 mg PO DAILY #5 tablet 05/25/21 Unknown Rx Azithromycin [Zithromax Z-ANNETTE] 250 mg PO DAILY #6 tablet 06/23/21 Unknown Rx Benzonatate [Tessalon Perles] 100 mg PO Q8HR #30 capsule 06/23/21 Unknown Rx Cetirizine HCl [Zyrtec 10mg tab] 10 mg PO DAILY #30 tablet 06/23/21 Unknown Rx Ibuprofen [Motrin] 600 mg PO Q8H PRN #30 tablet 06/23/21 Unknown Rx Prednisone [predniSONE 10 mg 10 mg PO .TAPER #21 tab.ds.pk 06/23/21 Unknown Rx (6-Day Pack, 21 Tabs)] Ibuprofen [Motrin 800 MG tab] 800 mg PO Q8HR PRN #20 tablet 11/28/21 Unknown Rx Ofloxacin 0.3% [Floxin 0.3% Otic] 10 drop OT QDAY 7 Days #1 bottle 11/28/21 Unknown Rx guaiFENesin/DEXTROMETHORPHAN 1 each PO BID PRN #20 tab.er.12h 11/28/21 Unknown Rx [Mucinex Dm ER 1,200-60 mg Tab] Allergies Allergy/AdvReac Type Severity Reaction Status Date / Time Penicillins Allergy Severe Anaphylaxis Verified 03/03/19 09:53 amoxicillin Allergy Rash Verified 06/22/21 19:58 shellfish derived Allergy Shortness Verified 11/21/20 19:59 of Breath ED Review of Systems ROS: Stated complaint: HEADACHE/COLD/RUNNY NOSE Other details as noted in HPI Constitutional: fever, malaise. denies: chills, weakness ENT: ear pain, throat pain Respiratory: cough. denies: shortness of breath Cardiovascular: denies: chest pain Gastrointestinal: denies: nausea, vomiting, diarrhea Hematological/Lymphatic: denies: swollen glands ED Past Medical Hx - Surgical History Additional Surgical History: Dental - Social History Smoking Status: Never Smoker Substance Use Type: None - Medications Home Medications: Home Medications Medication Instructions Recorded Confirmed Last Taken Type Cetirizine HCl [ZyrTEC] 10 mg PO DAILY #30 capsule 05/25/21 Unknown Rx Fluticasone [Flonase] 1 spray NS QDAY #1 bottle 05/25/21 Unknown Rx Ondansetron [Zofran Odt] 4 mg PO Q8HR PRN #10 tab.rapdis 05/25/21 Unknown Rx cephALEXin [Keflex] 500 mg PO Q12HR #20 cap 05/25/21 Unknown Rx predniSONE [Deltasone] 20 mg PO DAILY #5 tablet 05/25/21 Unknown Rx Azithromycin [Zithromax Z-ANNETTE] 250 mg PO DAILY #6 tablet 06/23/21 Unknown Rx Benzonatate [Tessalon Perles] 100 mg PO Q8HR #30 capsule 06/23/21 Unknown Rx Cetirizine HCl [Zyrtec 10mg tab] 10 mg PO DAILY #30 tablet 06/23/21 Unknown Rx Ibuprofen [Motrin] 600 mg PO Q8H PRN #30 tablet 06/23/21 Unknown Rx Prednisone [predniSONE 10 mg 10 mg PO .TAPER #21 tab.ds.pk 06/23/21 Unknown Rx (6-Day Pack, 21 Tabs)] Ibuprofen [Motrin 800 MG tab] 800 mg PO Q8HR PRN #20 tablet 11/28/21 Unknown Rx Ofloxacin 0.3% [Floxin 0.3% Otic] 10 drop OT QDAY 7 Days #1 bottle 11/28/21 Unknown Rx guaiFENesin/DEXTROMETHORPHAN 1 each PO BID PRN #20 tab.er.12h 11/28/21 Unknown Rx [Mucinex Dm ER 1,200-60 mg Tab] ED Physical Exam - General Limitations: No Limitations General appearance: alert, in no apparent distress - Head Head exam: Present: atraumatic, normocephalic - Eye Eye exam: Present: normal appearance. Absent: scleral icterus - ENT ENT exam: Present: normal exam, normal orophraynx - Expanded ENT Exam Expanded TM/Canal exam: Canal Discharge: Right TM, Left TM, Canal Tenderness: Right TM, Left TM Mouth exam: Absent: drooling, trismus, muffled voice Throat exam: Positive: normal inspection. Negative: tonsillar erythema, tonsill omegaly, tonsillar exudate - Neck Neck exam: Present: normal inspection, full ROM - Respiratory Respiratory exam: Present: normal lung sounds bilaterally. Absent: respiratory distress - Cardiovascular Cardiovascular Exam: Present: regular rate, normal rhythm. Absent: systolic murmur, diastolic murmur, rubs, gallop - Neurological Exam Neurological exam: Present: alert, oriented X3 - Psychiatric Psychiatric exam: Present: normal affect, normal mood - Skin Skin exam: Present: warm, dry, intact, normal color. Absent: rash ED Course Vital Signs 11/28/21 11:37 Temperature 99 F Pulse Rate 81 Respiratory 16 Rate Blood Pressure 147/93 [Right] O2 Sat by Pulse 100 Oximetry ED Medical Decision Making - Radiology Data Radiology results: report reviewed CHEST 2 VIEWS INDICATION: cough, fever. COMPARISON: 06/22/2021 FINDINGS: Support devices: None. Heart: Within normal limits. Lungs/Pleura: No acute air space or interstitial disease. No significant pleural effusion. IMPRESSION: No acute findings. - Medical Decision Making Bilateral otitis externa noted on exam. Oropharynx is normal and lungs are clear. Chest x-ray is negative for any acute abnormalities. Will treat sore throat symptomatically and prescribed antibacterial eardrops for the otitis externa. She is otherwise well-appearing, her vitals are within normal, she is stable for discharge home. Strict return precautions were discussed in detail patient verbalizes understanding. Critical care attestation.: If time is entered above; I have spent that time in minutes in the direct care of this critically ill patient, excluding procedure time. ED Disposition Clinical Impression: Otitis externa, Viral URI with cough Disposition: HOME / SELF CARE / HOMELESS Is pt being admited?: No Condition: Stable Instructions: Viral Respiratory Infection, Xlid-Ca-Rmdm, Otitis Externa Prescriptions: Ofloxacin 0.3% [Floxin 0.3% Otic] 10 drop OT QDAY 7 Days #1 bottle Ibuprofen [Motrin 800 MG tab] 800 mg PO Q8HR PRN #20 tablet PRN Reason: pain guaiFENesin/DEXTROMETHORPHAN [Mucinex Dm ER 1,200-60 mg Tab] 1 each PO BID PRN #20 tab.er.12h PRN Reason: cough/congestion Referrals: PRIMARY CARE, [Primary Care Provider] - 3-5 Days Forms: Work/School Release Form(ED)
--- NOTE | 2021-11-28 14:13 | XRay Report ---
CHEST 2 VIEWS INDICATION: cough, fever. COMPARISON: 06/22/2021 FINDINGS: Support devices: None. Heart: Within normal limits. Lungs/Pleura: No acute air space or interstitial disease. No significant pleural effusion. IMPRESSION: No acute findings. Signer Name: Kenrick Villalta MD Signed: 11/28/2021 2:09 PM Workstation Name: [id number]
== END 2021-11-28 15:02 | disposition home or self-care (01) ==
LOC: ED 11:30
DX: H60.93 Unspecified otitis externa, bilateral (principal); J06.9 Acute upper respiratory infection, unspecified
CPT/HCPCS: 71046; 99283

== ENCOUNTER 2022-08-23 07:55 | Emergency (ER) | payer SELFPAY ==
[2022-08-23 08:00] VITALS: BP 137/96
--- NOTE | 2022-08-23 12:30 | Emergency Department Report ---
Minor Respiratory - HPI Chief Complaint: Upper Respiratory Infection Stated Complaint: EARACHE,HEADACHE,STUFFYNOSE Time Seen by Provider: 08/23/22 09:43 Severity: mild Minor Respiratory: Yes Rhinorrhea, Yes Sore Throat, Yes Able to Tolerate Fluids, Yes Cough, No Sick Contacts, No Hemoptysis, No Chest Pain, No Shortness of Breath ED Review of Systems ROS: Stated complaint: EARACHE,HEADACHE,STUFFYNOSE Other details as noted in HPI Respiratory: denies: cough, orthopnea Cardiovascular: denies: chest pain ED Past Medical Hx - Past Medical History Previous Medical History?: No - Surgical History Past Surgical History?: No Additional Surgical History: Dental - Social History Smoking Status: Never Smoker Substance Use Type: None - Medications Home Medications: Home Medications Medication Instructions Recorded Confirmed Last Taken Type Cetirizine HCl [ZyrTEC] 10 mg PO DAILY #30 capsule 05/25/21 Unknown Rx Fluticasone [Flonase] 1 spray NS QDAY #1 bottle 05/25/21 Unknown Rx Ondansetron [Zofran Odt] 4 mg PO Q8HR PRN #10 tab.rapdis 05/25/21 Unknown Rx cephALEXin [Keflex] 500 mg PO Q12HR #20 cap 05/25/21 Unknown Rx predniSONE [Deltasone] 20 mg PO DAILY #5 tablet 05/25/21 Unknown Rx Azithromycin [Zithromax Z-ANNETTE] 250 mg PO DAILY #6 tablet 06/23/21 Unknown Rx Benzonatate [Tessalon Perles] 100 mg PO Q8HR #30 capsule 06/23/21 Unknown Rx Cetirizine HCl [Zyrtec 10mg tab] 10 mg PO DAILY #30 tablet 06/23/21 Unknown Rx Ibuprofen [Motrin] 600 mg PO Q8H PRN #30 tablet 06/23/21 Unknown Rx Prednisone [predniSONE 10 mg 10 mg PO .TAPER #21 tab.ds.pk 06/23/21 Unknown Rx (6-Day Pack, 21 Tabs)] Ibuprofen [Motrin 800 MG tab] 800 mg PO Q8HR PRN #20 tablet 11/28/21 Unknown Rx Ofloxacin 0.3% [Floxin 0.3% Otic] 10 drop OT QDAY 7 Days #1 bottle 11/28/21 Unknown Rx guaiFENesin/DEXTROMETHORPHAN 1 each PO BID PRN #20 tab.er.12h 11/28/21 Unknown Rx [Mucinex Dm ER 1,200-60 mg Tab] Minor Respiratory Exam - Exam General: Vital signs noted. No distress. Alert and acting appropriately. Neurologic: Alert and oriented, no deficits. Musculoskeletal: Unremarkable. ED Course Vital Signs 08/23/22 07:58 Temperature 99.2 F Pulse Rate 62 Respiratory 18 Rate Blood Pressure 137/96 O2 Sat by Pulse 96 Oximetry ED Medical Decision Making - Medical Decision Making Medical screening exam performed, patient left before proper assessment and disposition while in the waiting area. In the setting of a significantly high volume and record number of patients presenting to the emergency department and the fact that we have a limited space to see patients we have implemented the provider in triage protocol this allows an expedited initial exam of patients that might otherwise have left without being seen or who would wait longer than usual to be seen by provider. I interviewed the patient and performed a limited physical exam. This patient is a pulled from the waiting room to triage room for an initial assessment of adrenal studies and then returned to the waiting room pending results of the studies. The ultimate final evaluation and disposition may be performed by another provider depending on room and provider availability. Critical care attestation.: If time is entered above; I have spent that time in minutes in the direct care of this critically ill patient, excluding procedure time. ED Disposition Clinical Impression: URI (upper respiratory infection) Disposition: 07 LEFT WITHOUT BEING SEEN Is pt being admited?: No Does the pt Need Aspirin: No Condition: Stable Referrals: PRIMARY CARE, [Primary Care Provider] - 3-5 Days
== END 2022-08-23 09:49 | disposition left against medical advice (07) ==
LOC: ED 07:55
DX: J06.9 Acute upper respiratory infection, unspecified (principal)
CPT/HCPCS: 99281